=== PATIENT | female | born 1950 | race Caucasian/White ===

== ENCOUNTER 2017-07-18 12:29 | Inpatient (IN) | payer OTHER, MEDICARE ==
[2017-07-18 12:34] VITALS: BMI 28.3
[2017-07-18] MEDS ORDERED: methylPREDNISolone NA SUCC 125 MG/2 ML VIAL IVPB ONE (13:50)
[2017-07-18] MEDS ORDERED: methylPREDNISolone NA SUCC 125 MG/2 ML VIAL ONE (14:08)
[2017-07-18] MEDS ORDERED: ALBUTEROL SO4 2.5/IPRATROPIUM 0.5 INH SOL 3 ML VIAL.NEB. NEB ONE ×3 (14:08→21:38)
[2017-07-18] MEDS: ALBUTEROL SO4 2.5/IPRATROPIUM 0.5 INH SOL 3 ML VIAL.NEB. NEB SCH ×5 (14:08→21:58)
[2017-07-18 14:16] LABS: BASO % 0.6 % (0-2.0); EOS % 2.6 % (0-4.5); HEMATOCRIT 41.4 % (32.4-45.2); HEMOGLOBIN 13.5 GM/dL (10.7-15.3); LYMPH % 17.1 % (8-40); MCH 27.1 pg (25.7-33.7); MCHC 32.5 g/dl (32.0-36.0); MEAN CELL VOLUME 83.3 fl (80-96); MEAN PLT VOLUME 8.2 fl (7.5-11.1); MONO % 9.2 % (3.8-10.2); NEUT % 70.5 % (42.8-82.8); PLATELET COUNT 253 K/MM3 (134-434); RBC 4.97 M/mm3 (3.60-5.2); RDW 13.8 % (11.6-15.6); WHITE BLOOD COUNT 7.3 K/mm3 (4.0-10.0)
[2017-07-18] MEDS ORDERED: ACETAMINOPHEN 1000 MG/100 ML VIAL (NON FORMULARY) IVPB ONE (14:27)
[2017-07-18] MEDS ORDERED: SODIUM CHLORIDE 1,000 ML IV STA (14:27)
--- NOTE | 2017-07-18 14:27 | PDOC ---
History of Present Illness - General Chief Complaint: Respiratory Stated Complaint: WHEEZING Time Seen by Provider: 07/18/17 13:36 - History of Present Illness Initial Comments: 07/18/17 14:23 "The patient is a 67-year-old woman with a significant past medical history of bronchitis, chronic low-back pain, arthritis, who presents with SOB for 4 days. The patient states that she saw her primary 2 days ago who diagnosed her with bronchitis and told her she was flu-positive. She was started on tamiflu and cefuroxime. She states that over the past 2 days she has gotten worse. States that she has been coughing, wheezing and unable to sleep. She also reports diarrhea (since this morning), nausea without vomit, and headache (one week). She denies recent fevers, chills, or dizziness. She denies recent vomit, or constipation. She denies recent dysuria, frequency, urgency or hematuria. She denies recent chest pain. Allergies: Oxycodone (reaction: nausea, vomiting) Previous surgeries: Temporary kidney stent (s/p 7 years ago); C-spine surgery with titanium; gallbladder removal Social: non-smoker, non-drinker PCP: Thad Urologist: Halima Duran) " Past History - Past Medical History Allergies/Adverse Reactions: Allergies Allergy/AdvReac Type Severity Reaction Status Date / Time oxycodone AdvReac Severe Nausea Verified 07/18/17 12:34 Home Medications: Ambulatory Orders Escitalopram Oxalate [Lexapro -] 10 mg PO DAILY 03/03/15 Cefuroxime Axetil [Cefuroxime] 500 mg PO BID 07/18/17 Oseltamivir Phosphate [Tamiflu -] 75 mg PO BID 07/18/17 Pantoprazole Sodium [Protonix] 40 mg PO DAILY 07/18/17 Anemia: No Asthma: No Cancer: No Cardiac Disorders: No CVA: No COPD: No CHF: No Dementia: No Diabetes: No GI Disorders: Yes Disorders: No HTN: No Hypercholesterolemia: No Liver Disease: No Psychiatric Problems: No Seizures: No Thyroid Disease: No - Surgical History Abdominal Surgery: No Appendectomy: No Cardiac Surgery: No Cholecystectomy: Yes Lung Surgery: No Neurologic Surgery: No Orthopedic Surgery: Yes (CERVICAL SPINAL SURGERY 04/2010) - Suicide/Smoking/Psychosocial Hx Smoking History: Never smoked Have you smoked in the past 12 months: No Hx Alcohol Use: Yes (SOCIAL) Drug/Substance Use Hx: No Substance Use Type: None Review of Systems - Review of Systems Comments:: 07/18/17 14:24 "GENERAL/CONSTITUTIONAL: No fever or chills. No weakness. HEAD, EYES, EARS, NOSE AND THROAT: No change in vision. No ear pain or discharge. No sore throat. CARDIOVASCULAR: No chest pain. + shortness of breath. RESPIRATORY: +cough, +wheezing, no hemoptysis. GASTROINTESTINAL: +nausea, no vomiting, +diarrhea, no constipation. GENITOURINARY: No dysuria, frequency, or change in urination. MUSCULOSKELETAL: No joint or muscle swelling or pain. No neck or back pain. SKIN: No rash NEUROLOGIC: +headache, no vertigo, loss of consciousness, or change in strength/ sensation. ENDOCRINE: No increased thirst. No abnormal weight change. HEMATOLOGIC/LYMPHATIC: No anemia, easy bleeding, or history of blood clots. ALLERGIC/IMMUNOLOGIC: No hives or skin allergy." *Physical Exam - Vital Signs Last Vital Signs Temp Pulse Resp BP Pulse Ox 98.6 F 128 H 20 154/93 98 07/18/17 12:32 07/18/17 12:32 07/18/17 12:32 07/18/17 12:32 07/18/17 12:32 - Physical Exam Comments: 07/18/17 14:25 "GENERAL: Awake, alert, and fully oriented, in no acute distress HEAD: No signs of trauma EYES: PERRLA, EOMI, sclera anicteric, conjunctiva clear ENT: Auricles normal inspection, hearing grossly normal, nares patent, oropharynx clear without exudates. Moist mucosa NECK: Nontender, no stepoffs, Normal ROM, supple, no lymphadenopathy, JVD, or masses LUNGS: Bilateral wheezing, no rales or rhonchi HEART: Regular rate and rhythm, normal S1 and S2, no murmurs, rubs or gallops ABDOMEN: Soft, nontender, normoactive bowel sounds. No guarding, no rebound. No masses EXTREMITIES: Normal range of motion, no edema. No clubbing or cyanosis. No cords, erythema, or tenderness NEUROLOGICAL: Cranial nerves II through XII intact. 5/5 strength and sensation in all extremities, Normal speech, normal gait SKIN: Warm, Dry, normal turgor, no rashes or lesions noted. " Heart Score/ECG Review - ECG Impressions Comment:: 07/18/17 14:25 NSR, no JUAN JOSE/STDs, no TWIs, axis wnl, intervals wnl ED Treatment Course - LABORATORY CBC & Chemistry Diagram: 07/18/17 13:55 07/18/17 13:55 - ADDITIONAL ORDERS Additional order review: 07/18/17 13:55 RBC 4.97 MCV 83.3 MCHC 32.5 RDW 13.8 MPV 8.2 Neutrophils % 70.5 Lymphocytes % 17.1 D Monocytes % 9.2 Eosinophils % 2.6 Basophils % 0.6 - RADIOLOGY Radiology Studies Ordered: Category Date Time Status CHEST PA & LAT [RAD] Stat Radiology 07/18/17 13:49 Ordered - Medications Given in the ED: ED Medications Discontinued Medications Generic Name Dose Route Start Last Admin Trade Name Freq PRN Reason Stop Dose Admin Methylprednisolone Sodium Succinate 125 mg 07/18/17 13:50 07/18/17 14:08 Solu-Medrol - IVPB 07/18/17 13:51 125 mg ONCE ONE Administration Medical Decision Making - Medical Decision Making 07/18/17 14:25 67 F with cough and SOB x 2 days. Wheezing on exam. Concerning for acute asthma exacerbation. Pt denies h/o asthma but states that she has been put on nebulizers in the past. - Labs - CXR - IVF, nebs, solumedrol - Pt is already on tamiflu for + outpt flu swab 07/18/17 17:57 CBC,CMP WBC 7.3 K/mm3 (4.0-10.0) 07/18/17 13:55 RBC 4.97 M/mm3 (3.60-5.2) 07/18/17 13:55 Hgb 13.5 GM/dL (10.7-15.3) 07/18/17 13:55 Hct 41.4 % (32.4-45.2) 07/18/17 13:55 MCV 83.3 fl (80-96) 07/18/17 13:55 MCH 27.1 pg (25.7-33.7) 07/18/17 13:55 MCHC 32.5 g/dl (32.0-36.0) 07/18/17 13:55 RDW 13.8 % (11.6-15.6) 07/18/17 13:55 Plt Count 253 K/MM3 (134-434) 07/18/17 13:55 MPV 8.2 fl (7.5-11.1) 07/18/17 13:55 Neutrophils % 70.5 % (42.8-82.8) 07/18/17 13:55 Lymphocytes % 17.1 % (8-40) D 07/18/17 13:55 Monocytes % 9.2 % (3.8-10.2) 07/18/17 13:55 Eosinophils % 2.6 % (0-4.5) 07/18/17 13:55 Basophils % 0.6 % (0-2.0) 07/18/17 13:55 Sodium 144 mmol/L (136-145) 07/18/17 13:55 Potassium 4.1 mmol/L (3.5-5.1) 07/18/17 13:55 Chloride 106 mmol/L (98-107) 07/18/17 13:55 Carbon Dioxide 30 mmol/L (21-32) 07/18/17 13:55 Anion Gap 8 (8-16) 07/18/17 13:55 BUN 10 mg/dL (7-18) 07/18/17 13:55 Creatinine 0.5 mg/dL (0.55-1.02) L 07/18/17 13:55 Creat Clearance w eGFR > 60 (>60) 07/18/17 13:55 Random Glucose 96 mg/dL (74-106) 07/18/17 13:55 Calcium 8.6 mg/dL (8.5-10.1) 07/18/17 13:55 Total Bilirubin 0.4 mg/dL (0.2-1.0) 07/18/17 13:55 AST 21 U/L (15-37) 07/18/17 13:55 ALT 27 U/L (12-78) 07/18/17 13:55 Alkaline Phosphatase 102 U/L (45-117) 07/18/17 13:55 Creatine Kinase 59 IU/L (26-192) 07/18/17 13:55 Troponin I < 0.02 ng/ml (0.00-0.05) 07/18/17 13:55 B-Natriuretic Peptide 273.93 pg/ml (5-125) H 07/18/17 13:55 Total Protein 7.8 g/dl (6.4-8.2) 07/18/17 13:55 Albumin 3.8 g/dl (3.4-5.0) 07/18/17 13:55 CXR clear Pt reassessed s/p nebs and steroids - states her breathing is better but she still continues to feel SOB. Additional nebs ordered, will admit at this time for continued treatment. Admitted to hospitalist *DC/Admit/Observation/Transfer Diagnosis at time of Disposition: SOB (shortness of breath) - Discharge Dispostion Admit: Yes - Referrals Referrals: Patria Oneil MD [Primary Care Provider] - - Patient Instructions - Post Discharge Activity - Attestations Physician Attestion: 07/18/17 18:02 I, Dr. Hans Martin MD, attest that this document has been prepared under my direction and personally reviewed by me in its entirety. I further attest, that it accurately reflects all work, treatment, procedures and medical decision -making performed by me.
[2017-07-18 14:38] LABS: ALBUMIN 3.8 g/dl (3.4-5.0); ANION GAP 8 (8-16); BLOOD UREA NITROGEN 10 mg/dL (7-18); CALCIUM 8.6 mg/dL (8.5-10.1); CHLORIDE 106 mmol/L (98-107); CO2 30 mmol/L (21-32); GLUCOSE,RANDOM 96 mg/dL (74-106); POTASSIUM 4.1 mmol/L (3.5-5.1); SODIUM 144 mmol/L (136-145)
[2017-07-18 14:42] LABS: CREATININE 0.5 mg/dL (0.55-1.02); SGOT/AST 21 U/L (15-37); SGPT/ALT 27 U/L (12-78)
[2017-07-18 14:46] LABS: ALK PHOS 102 U/L (45-117); BILIRUBIN,TOTAL 0.4 mg/dL (0.2-1.0); N-TERMINAL BNP 273.93 pg/ml (5-125); TOT PROT 7.8 g/dl (6.4-8.2)
[2017-07-18] MEDS ORDERED: ACETAMINOPHEN INJECTION 100 ML IVPB ONE (15:38)
[2017-07-18] MEDS ORDERED: ALBUTEROL SO4 0.083% IH SOL 2.5 MG/3 ML VIAL.NEB. NEB ONE (17:59)
--- NOTE | 2017-07-18 18:53 | HP ---
CHIEF COMPLAINT: body aches, shortness of breath, audible wheezing PCP: Dr. Oneil HISTORY OF PRESENT ILLNESS: Patient is a 67 year old female with a significant past medical history of bronchitis, chronic low-back pain and arthritis. Patient presents to the ED today with shortness of breath x 4 dahs. Patient saw her PCP on Wednesday (2 days ago) and was diagnosed with bronchitis and was told she was positive for the flu. She was started on Tamilfu and and Cefuroxime. However, over the course of the last 48 hours, patients states her breathing worsened. She further reports worsening cough, chills, audible wheezing and poor sleep due to these symptoms. She also reports diarrhea, nausea without vomiting, and headaches. However, states that these symptoms have improved now and able to tolerate her dinner. She denies recent chills, or dizziness but feels "flushed" at home. She denies chest pain. ER course was notable for: (1) Solumedrol 125mg given in ED (2) Ofirmev 1000mg x 1 (3) Duonebs x 2 (4) Chest xray no acute pathology, lower cervical spinal fusion Recent Travel: denies PAST MEDICAL HISTORY: PAST SURGICAL HISTORY: Temporary kidney stent (s/p 7 years ago); C-spine surgery with titanium; gallbladder removal Social History: Smoking: denies Alcohol: denies Drugs: denies Family History: Allergies oxycodone Adverse Reaction (Severe, Verified 07/18/17 12:34) Nausea HOME MEDICATIONS: Home Medications Medication Instructions Recorded Escitalopram Oxalate [Lexapro -] 10 mg PO DAILY 03/03/15 Cefuroxime Axetil [Cefuroxime] 500 mg PO BID 07/18/17 Oseltamivir Phosphate [Tamiflu -] 75 mg PO BID 07/18/17 Pantoprazole Sodium [Protonix] 40 mg PO DAILY 07/18/17 REVIEW OF SYSTEMS CONSTITUTIONAL: Absent: diaphoresis, weight change HEENT: Absent: rhinorrhea, throat swelling, difficulty swallowing, mouth swelling, ear pain, eye pain, visual changes CARDIOVASCULAR: Absent: chest pain, syncope, palpitations, irregular heart rate, lightheadedness , peripheral edema RESPIRATORY: Absent: hemoptysis GENITOURINARY: Absent: dysuria, frequency, urgency, hesitancy, hematuria, flank pain, genital pain MUSCULOSKELETAL: Absent: myalgia, arthralgia, joint swelling, back pain, neck pain SKIN: Absent: rash, itching, pallor HEMATOLOGIC/IMMUNOLOGIC: Absent: easy bleeding, easy bruising, lymphadenopathy, frequent infections ENDOCRINE: Absent: unexplained weight gain, unexplained weight loss, heat intolerance, cold intolerance NEUROLOGIC: Absent: headache, focal weakness or paresthesias, dizziness, unsteady gait, seizure, mental status changes, bladder or bowel incontinence PSYCHIATRIC: PHYSICAL EXAMINATION Vital Signs - 24 hr 07/18/17 07/18/17 12:32 18:10 Temperature 98.6 F 99.6 F Pulse Rate 128 H Pulse Rate [ 124 H Left Apical] Respiratory 20 18 Rate Blood Pressure 154/93 Blood Pressure 144/68 [Left Arm] O2 Sat by Pulse 98 98 Oximetry (%) GENERAL: Awake, alert, and fully oriented, in mild respiratory distress. HEAD: Normal with no signs of trauma. EYES: Pupils equal, round and reactive to light, extraocular movements intact, sclera anicteric, conjunctiva clear. No lid lag. EARS, NOSE, THROAT: Ears normal, nares patent, oropharynx clear without exudates. Moist mucous membranes. NECK: Normal range of motion, supple without lymphadenopathy, JVD, or masses. LUNGS: +wheezing, scattered, diminished breath sounds bilaterally HEART: Tachycardia ABDOMEN: Soft, nontender, not distended, normoactive bowel sounds MUSCULOSKELETAL: No CVA tenderness. UPPER EXTREMITIES: No clubbing. No peripheral edema. LOWER EXTREMITIES: No peripheral edema. NEUROLOGICAL: Cranial nerves II-XII intact. Normal speech. Normal gait. PSYCHIATRIC: Cooperative. Good eye contact. Appropriate mood and affect. SKIN: Warm, dry, normal turgor, no rashes or lesions noted, normal capillary refill. Laboratory Results - last 24 hr 07/18/17 07/18/17 13:55 13:55 WBC 7.3 RBC 4.97 Hgb 13.5 Hct 41.4 MCV 83.3 MCH 27.1 MCHC 32.5 RDW 13.8 Plt Count 253 MPV 8.2 Neutrophils % 70.5 Lymphocytes % 17.1 D Monocytes % 9.2 Eosinophils % 2.6 Basophils % 0.6 Sodium 144 Potassium 4.1 Chloride 106 Carbon Dioxide 30 Anion Gap 8 BUN 10 Creatinine 0.5 L Creat Clearance w eGFR > 60 Random Glucose 96 Calcium 8.6 Total Bilirubin 0.4 AST 21 ALT 27 Alkaline Phosphatase 102 Creatine Kinase 59 Troponin I < 0.02 B-Natriuretic Peptide 273.93 H Total Protein 7.8 Albumin 3.8 ASSESSMENT/PLAN: Patient is a 67 year old female with a significant past medical history of bronchitis, chronic low-back pain and arthritis. Patient presents to the ED today with shortness of breath x 4 days. Patient saw her PCP on Wednesday (2 days ago) and was diagnosed with bronchitis and was told she was positive for the flu. She was started on Tamilfu and and Cefuroxime. However, over the course of the last 48 hours, patients states her breathing worsened. She further reports worsening cough, chills, audible wheezing and poor sleep due to these symptoms. She also reports diarrhea, nausea without vomiting, and headaches. However, states that these symptoms have improved now and able to tolerate her dinner. She denies recent chills, or dizziness but feels "flushed" at home. She denies chest pain. Pulmonary: + Flu, Bronchitis + wheezing Given Solumedrol in ED, will continue solumedrol 40mg during hospitalization Duonebs Supplemental oxygen Tamiflu to continue Cefuroxime as ordered by PCP Robitussin PRN Monitor respiratory status, wean off oxygen in a.m. (needs respiratory pre and post) Consider pulmonary consult To be seen by her PCP in a.m. GI: Nausea/Vomiting/Diarrhea, now resolved Gentle hydration x 1 bag Reassess in a.m. Zofran prn Muscular/Skeletal Lidoder patch for chronic low back pain/arthritis Tylenol PRN FEN Fluids: tolerating PO Electrolytes: monitor Nutrition: regular Prophy: DVT: LOS < 48 hrs GI: Protonix Disposition. Full Code. Medical coverage for Dr. Oneil. Dr. Oneil to resume care in a.m. full code. Visit type - Emergency Visit Emergency Visit: Yes ED Registration Date: 07/18/17 Care time: The patient presented to the Emergency Department on the above date and was hospitalized for further evaluation of their emergent condition. - New Patient This patient is new to me today: Yes Date on this admission: 07/19/17 - Critical Care Critical Care patient: No
[2017-07-18] MEDS ORDERED: ALBUTEROL SO4 2.5/IPRATROPIUM 0.5 INH SOL 3 ML VIAL.NEB. NEB PRN (19:25)
[2017-07-18] MEDS ORDERED: ONDANSETRON 4 MG/2 ML VIAL IVPUSH PRN (19:30)
[2017-07-18] MEDS: SODIUM CHLORIDE 1,000 ML IV SCH (21:57)
[2017-07-18] MEDS ORDERED: LIDOCAINE 5% TOPICAL PATCH ONE (22:05)
[2017-07-18] MEDS ORDERED: OSELTAMIVIR PHOSPHATE 75 MG CAPSULE ONE (22:05)
[2017-07-18] MEDS ORDERED: ACETAMINOPHEN 325 MG TABLET (FP) ONE (22:05)
[2017-07-18] MEDS: ACETAMINOPHEN 325 MG TABLET (FP) PO PRN (22:11)
[2017-07-18] MEDS: LIDOCAINE 5% TOPICAL PATCH TP SCH (22:12)
[2017-07-18] MEDS: OSELTAMIVIR PHOSPHATE 75 MG CAPSULE PO SCH (22:12)
[2017-07-18] MEDS: CEFUROXIME AXETIL 500 MG TABLET PO SCH (22:43)
[2017-07-19] MEDS ORDERED: ONDANSETRON 4 MG/2 ML VIAL ONE (02:22)
[2017-07-19] MEDS ORDERED: ACETAMINOPHEN 325 MG TABLET (FP) ONE (02:23)
[2017-07-19] MEDS ORDERED: methylPREDNISolone NA SUCC 40 MG/1 ML VIAL ONE (02:23)
[2017-07-19] MEDS: ACETAMINOPHEN 325 MG TABLET (FP) PO PRN ×3 (02:41→20:34)
[2017-07-19] MEDS: methylPREDNISolone NA SUCC 40 MG/1 ML VIAL IVPUSH SCH ×3 (02:43→17:44)
[2017-07-19 08:09] LABS: HEMATOCRIT 37.4 % (32.4-45.2); HEMOGLOBIN 12.2 GM/dL (10.7-15.3); MCH 27.3 pg (25.7-33.7); MCHC 32.8 g/dl (32.0-36.0); MEAN CELL VOLUME 83.3 fl (80-96); MEAN PLT VOLUME 8.7 fl (7.5-11.1); PLATELET COUNT 238 K/MM3 (134-434); RBC 4.49 M/mm3 (3.60-5.2); RDW 13.8 % (11.6-15.6); WHITE BLOOD COUNT 12.1 K/mm3 (4.0-10.0)
[2017-07-19] MEDS: ALBUTEROL SO4 2.5/IPRATROPIUM 0.5 INH SOL 3 ML VIAL.NEB. NEB SCH ×4 (08:10→19:46)
[2017-07-19] MEDS ORDERED: ALBUTEROL SO4 2.5/IPRATROPIUM 0.5 INH SOL 3 ML VIAL.NEB. NEB ONE (08:41)
[2017-07-19 08:52] LABS: ALBUMIN 3.7 g/dl (3.4-5.0); ANION GAP 9 (8-16); BILIRUBIN,TOTAL 0.5 mg/dL (0.2-1.0); BLOOD UREA NITROGEN 8 mg/dL (7-18); CALCIUM 8.9 mg/dL (8.5-10.1); CHLORIDE 106 mmol/L (98-107); CO2 26 mmol/L (21-32); CREATININE 0.5 mg/dL (0.55-1.02); GLUCOSE,RANDOM 128 mg/dL (74-106); POTASSIUM 4.4 mmol/L (3.5-5.1); SGOT/AST 21 U/L (15-37); SGPT/ALT 25 U/L (12-78); SODIUM 141 mmol/L (136-145); TOT PROT 7.5 g/dl (6.4-8.2)
[2017-07-19 08:53] LABS: ALK PHOS 90 U/L (45-117)
[2017-07-19] MEDS: OSELTAMIVIR PHOSPHATE 75 MG CAPSULE PO SCH ×2 (10:57→22:41)
[2017-07-19] MEDS: LIDOCAINE PATCH REMOVAL MC SCH (10:57)
[2017-07-19] MEDS: PANTOPRAZOLE 40 MG TABLET (FP) PO SCH (10:57)
[2017-07-19] MEDS: CEFUROXIME AXETIL 500 MG TABLET PO SCH ×2 (10:57→22:40)
[2017-07-19] MEDS: ESCITALOPRAM OXALATE 10 MG TABLET (FP) PO SCH (10:57)
--- NOTE | 2017-07-19 11:24 | PN ---
Progress Note, Physician Chief Complaint: seen and examined coughing all night - Current Medication List Current Medications: Active Medications Acetaminophen (Tylenol -) 650 mg PO Q6H PRN PRN Reason: fever Last Admin: 07/19/17 02:41 Dose: 650 mg Albuterol/Ipratropium (Duoneb -) 1 amp NEB RQID [facility] Last Admin: 07/19/17 08:10 Dose: 1 amp Cefuroxime Axetil (Ceftin -) 500 mg PO BID [facility] Last Admin: 07/18/17 22:43 Dose: 500 mg Escitalopram Oxalate (Lexapro -) 10 mg PO DAILY [facility] Guaifenesin (Robitussin -) 10 ml PO Q4H PRN PRN Reason: COUGH Sodium Chloride (Normal Saline -) 1,000 mls @ 50 mls/hr IV ASDIR [facility] Stop: 07/19/17 19:30 Last Admin: 07/18/17 21:57 Dose: 50 mls/hr Lidocaine (Lidoderm Patch -) 1 patch TP DAILY@2200 [facility] Last Admin: 07/18/17 22:12 Dose: 1 patch Methylprednisolone Sodium Succinate (Solu-Medrol -) 40 mg IVPUSH Q8H-IV [facility] Last Admin: 07/19/17 02:43 Dose: 40 mg Miscellaneous (Lidoderm Patch Removal) 1 each MC DAILY@1000 [facility] Ondansetron HCl (Zofran Injection) 4 mg IVPUSH Q6H PRN PRN Reason: NAUSEA Last Admin: 07/19/17 02:41 Dose: 4 mg Oseltamivir Phosphate (Tamiflu -) 75 mg PO BID [facility] Stop: 07/23/17 21:59 Last Admin: 07/18/17 22:12 Dose: 75 mg Pantoprazole Sodium (Protonix -) 40 mg PO DAILY [facility] - Objective Vital Signs: Vital Signs Temperature 98.2 F 07/19/17 08:58 Pulse Rate 111 H 07/19/17 08:58 Respiratory Rate 106 H 07/19/17 10:15 Blood Pressure 130/60 07/19/17 10:15 O2 Sat by Pulse Oximetry (%) 96 07/19/17 10:15 Cardiovascular: Yes: Regular Rate and Rhythm, S1, S2 Respiratory: Yes: Wheezes Gastrointestinal: Yes: Normal Bowel Sounds, Soft Edema: No Neurological: Yes: Alert, Oriented Labs: CBC, BMP 07/19/17 07:42 07/19/17 07:42 Problem List - Problems (1) SOB (shortness of breath) Assessment/Plan: influenza swab ordered tamiflu cefuroxime solumedrol bronchodilators pulm evaluation leukocytosis secondary to the steroids secoandry to bronchitis/flu early ambulation Code(s): R06.02 - SHORTNESS OF BREATH (2) Low back pain Assessment/Plan: lidocaine patch Code(s): M54.5 - LOW BACK PAIN
--- NOTE | 2017-07-19 13:04 | EKG ---
Test Reason : Blood Pressure : / mmHG Vent. Rate : 092 BPM Atrial Rate : 092 BPM P-R Int : 126 ms QRS Dur : 078 ms QT Int : 346 ms P-R-T Axes : 041 005 019 degrees QTc Int : 427 ms NORMAL SINUS RHYTHM NORMAL ECG WHEN COMPARED WITH ECG OF 31-MAR-2007 07:43, NO SIGNIFICANT CHANGE WAS FOUND Confirmed by MIREYA MATHEWS MD ([id number]) on 07/19/2017 1:04:34 PM Referred By: Confirmed By:MIREYA MATHEWS MD
[2017-07-19] MEDS: SODIUM CHLORIDE 1,000 ML IV SCH (14:25)
[2017-07-19] MEDS: guaiFENesin 200 MG/10 ML 10 ML UNIT-DOSE CUPS PO PRN ×2 (14:26→20:34)
[2017-07-19] MEDS ORDERED: SODIUM CHLORIDE 1,000 ML IV SCH (14:50)
[2017-07-19] MEDS ORDERED: PT OWN MED DRAWER 7, Y5N ONE (15:47)
[2017-07-19] MEDS: LIDOCAINE 5% TOPICAL PATCH TP SCH ×2 (22:41→22:47)
[2017-07-20] MEDS: methylPREDNISolone NA SUCC 40 MG/1 ML VIAL IVPUSH SCH ×3 (01:06→17:34)
[2017-07-20] MEDS: guaiFENesin 200 MG/10 ML 10 ML UNIT-DOSE CUPS PO PRN ×4 (01:06→20:29)
[2017-07-20] MEDS: ALBUTEROL SO4 2.5/IPRATROPIUM 0.5 INH SOL 3 ML VIAL.NEB. NEB SCH ×4 (07:51→20:55)
[2017-07-20] MEDS ORDERED: PT OWN MED DRAWER 7, Y5N ONE ×3 (10:00→20:34)
[2017-07-20] MEDS: OSELTAMIVIR PHOSPHATE 75 MG CAPSULE PO SCH ×2 (10:18→21:47)
[2017-07-20] MEDS: ESCITALOPRAM OXALATE 10 MG TABLET (FP) PO SCH (10:18)
[2017-07-20] MEDS: PANTOPRAZOLE 40 MG TABLET (FP) PO SCH (10:18)
[2017-07-20] MEDS: CEFUROXIME AXETIL 500 MG TABLET PO SCH ×2 (10:19→21:47)
[2017-07-20] MEDS: LIDOCAINE PATCH REMOVAL MC SCH (10:20)
--- NOTE | 2017-07-20 11:04 | PN ---
Progress Note, Physician Chief Complaint: Influenza, Bronchitis History of Present Illness: NAD, OOB self ambulatory, No SOB, No wheezing Coughing improved dramatically repeat influenza swab negative, today is day 5 on Tamiflu, no viral shedding after day 3 of treatment. will need albuterol neb for home possible discharge in AM - Current Medication List Current Medications: Active Medications Acetaminophen (Tylenol -) 650 mg PO Q6H PRN PRN Reason: fever Last Admin: 07/19/17 20:34 Dose: 650 mg Albuterol/Ipratropium (Duoneb -) 1 amp NEB RQID [facility] Last Admin: 07/20/17 07:51 Dose: 1 amp Cefuroxime Axetil (Ceftin -) 500 mg PO BID [facility] Last Admin: 07/20/17 10:19 Dose: 500 mg Escitalopram Oxalate (Lexapro -) 10 mg PO DAILY [facility] Last Admin: 07/20/17 10:18 Dose: 10 mg Guaifenesin (Robitussin -) 10 ml PO Q4H PRN PRN Reason: COUGH Last Admin: 07/20/17 06:21 Dose: 10 ml Lidocaine (Lidoderm Patch -) 1 patch TP DAILY@2200 [facility] Last Admin: 07/19/17 22:47 Dose: Not Given Methylprednisolone Sodium Succinate (Solu-Medrol -) 40 mg IVPUSH Q8H-IV [facility] Last Admin: 07/20/17 10:19 Dose: 40 mg Miscellaneous (Lidoderm Patch Removal) 1 each MC DAILY@1000 [facility] Last Admin: 07/20/17 10:20 Dose: 1 each Ondansetron HCl (Zofran Injection) 4 mg IVPUSH Q6H PRN PRN Reason: NAUSEA Last Admin: 07/19/17 02:41 Dose: 4 mg Oseltamivir Phosphate (Tamiflu -) 75 mg PO BID [facility] Stop: 07/23/17 21:59 Last Admin: 07/20/17 10:18 Dose: 75 mg Pantoprazole Sodium (Protonix -) 40 mg PO DAILY [facility] Last Admin: 07/20/17 10:18 Dose: 40 mg - Objective Vital Signs: Vital Signs Temperature 98.7 F 07/20/17 06:00 Pulse Rate 76 07/20/17 06:00 Respiratory Rate 20 07/20/17 06:00 Blood Pressure 151/78 07/20/17 06:00 O2 Sat by Pulse Oximetry (%) 98 07/20/17 05:00 Constitutional: Yes: Well Nourished, No Distress, Calm Cardiovascular: Yes: Regular Rate and Rhythm Respiratory: Yes: Regular, Cough Gastrointestinal: Yes: Normal Bowel Sounds, Soft Musculoskeletal: Yes: WNL Extremities: Yes: WNL Edema: No Peripheral Pulses WNL: Yes Neurological: Yes: Alert, Oriented Psychiatric: Yes: Alert, Oriented Labs: CBC, BMP 07/19/17 07:42 07/19/17 07:42 Problem List - Problems (1) Influenza Assessment/Plan: -tamiflu 5 days complete today evening -Cough suppressant -bronchodilators -IVF -IV steroids Code(s): J11.1 - FLU DUE TO UNIDENTIFIED INFLUENZA VIRUS W OTH RESP MANIFEST (2) Bronchitis Assessment/Plan: -IVF -IV steroids tapering -PO abx -cough suppressant -possible d/c in AM Code(s): J40 - BRONCHITIS, NOT SPECIFIED ACUTE OR CHRONIC (3) SOB (shortness of breath) Code(s): R06.02 - SHORTNESS OF BREATH Assessment/Plan see problem list
--- NOTE | 2017-07-20 12:17 | CON.PULM ---
Consult Consult Specialty:: PULM/CCM Referred by:: PMD Reason for Consultation:: SOB - History of Present Illness Chief Complaint: SOB History of Present Illness: 67 F, history of bronchitis, second hand smoke exposure through her , chronic low-back pain, and arthritis. Presented to her PMD last Wednesday with URI symptoms. Chills, malaise, and progressive SOB. She was swabbed and was (+) for Flu and started on Tamiflu. Admitted via the ER due to worsening symptoms. No travel history or sick contacts. No hemoptysis or night sweats. CXR: no acute pulmonary pathology. - History Source Limitations to Obtaining History: No Limitations - Past Medical History Pulmonary: Yes: Bronchitis - Past Surgical History Past Surgical History: Yes: Hysterectomy (sec to fibroids 2010) - Alcohol/Substance Use Hx Alcohol Use: Yes (SOCIAL) - Smoking History Smoking history: Never smoked Have you smoked in the past 12 months: No Home Medications - Allergies Allergies/Adverse Reactions: Allergies Allergy/AdvReac Type Severity Reaction Status Date / Time oxycodone AdvReac Severe Nausea Verified 07/18/17 12:34 - Home Medications Home Medications: Ambulatory Orders Escitalopram Oxalate [Lexapro -] 10 mg PO DAILY 03/03/15 Cefuroxime Axetil [Cefuroxime] 500 mg PO BID 07/18/17 Oseltamivir Phosphate [Tamiflu -] 75 mg PO BID 07/18/17 Pantoprazole Sodium [Protonix] 40 mg PO DAILY 07/18/17 Family Disease History - Family Disease History Family Disease History: Diabetes: Father, Brother, [place]: Daughter (breast cancer BRCA neg) Review of Systems - Review of Systems Constitutional: reports: Chills, Lethargy, Loss of Appetite, Malaise, Weakness. denies: Night Sweats Eyes: reports: No Symptoms HENT: reports: No Symptoms Neck: reports: No Symptoms Cardiovascular: reports: Shortness of Breath. denies: Chest Pain, Edema, Palpitations Respiratory: reports: Cough, SOB, SOB on Exertion, Wheezing. denies: Hemoptysis Gastrointestinal: reports: No Symptoms Genitourinary: reports: No Symptoms Breasts: reports: No Symptoms Reported Musculoskeletal: reports: No Symptoms Integumentary: reports: No Symptoms Neurological: reports: No Symptoms Endocrine: reports: No Symptoms Hematology/Lymphatic: reports: No Symptoms Psychiatric: reports: No Symptoms Physical Exam Vital Sings: Vital Signs Temperature 98.0 F 07/20/17 10:00 Pulse Rate 85 07/20/17 10:00 Respiratory Rate 20 07/20/17 10:00 Blood Pressure 157/87 07/20/17 10:00 O2 Sat by Pulse Oximetry (%) 98 07/20/17 05:00 Constitutional: Yes: No Distress, Calm Eyes: Yes: Conjunctiva Clear, EOM Intact HENT: Yes: Atraumatic, Normocephalic Neck: Yes: Supple, Trachea Midline Cardiovascular: Yes: Regular Rate and Rhythm Respiratory: Yes: CTA Bilaterally, Cough. No: Accessory Muscle Use, Rales, Rhonchi, Stridor, Tachypnea, Wheezes ...Inspection: Yes: WNL ...Clubbing: No Gastrointestinal: Yes: Normal Bowel Sounds, Soft, Abdomen, Obese Renal/: Yes: WNL Musculoskeletal: Yes: WNL Extremities: Yes: WNL Edema: No Peripheral Pulses WNL: Yes Integumentary: Yes: WNL Neurological: Yes: WNL, Alert, Oriented ...Motor Strength: WNL Psychiatric: Yes: WNL, Alert, Oriented Labs: CBC, BMP 07/19/17 07:42 07/19/17 07:42 Imaging - Results Chest X-ray: Report Reviewed, Image Reviewed Problem List - Problems (1) Bronchitis Code(s): J40 - BRONCHITIS, NOT SPECIFIED ACUTE OR CHRONIC (2) Influenza Code(s): J11.1 - FLU DUE TO UNIDENTIFIED INFLUENZA VIRUS W OTH RESP MANIFEST (3) SOB (shortness of breath) Code(s): R06.02 - SHORTNESS OF BREATH (4) Low back pain Code(s): M54.5 - LOW BACK PAIN Assessment/Plan Tamiflu to complete 5 days in total Noted empiric Ceftin: low threshold to D/C O2 as needed Medrol VTE prophylaxis Hopefully anticipate short stay as an inpatient Will follow Thank you Dr Allan
[2017-07-20] MEDS: ACETAMINOPHEN 325 MG TABLET (FP) PO PRN (15:53)
[2017-07-20] MEDS: LIDOCAINE 5% TOPICAL PATCH TP SCH (21:46)
[2017-07-21] MEDS: methylPREDNISolone NA SUCC 40 MG/1 ML VIAL IVPUSH SCH (02:03)
[2017-07-21] MEDS ORDERED: PT OWN MED DRAWER 7, Y5N ONE ×2 (07:28→09:51)
[2017-07-21] MEDS: ALBUTEROL SO4 2.5/IPRATROPIUM 0.5 INH SOL 3 ML VIAL.NEB. NEB SCH ×2 (08:12→11:30)
[2017-07-21] MEDS: OSELTAMIVIR PHOSPHATE 75 MG CAPSULE PO SCH (09:54)
[2017-07-21] MEDS: ESCITALOPRAM OXALATE 10 MG TABLET (FP) PO SCH (09:54)
[2017-07-21] MEDS: ACETAMINOPHEN 325 MG TABLET (FP) PO PRN (09:54)
[2017-07-21] MEDS: PANTOPRAZOLE 40 MG TABLET (FP) PO SCH (09:54)
[2017-07-21] MEDS: LIDOCAINE PATCH REMOVAL MC SCH (09:55)
[2017-07-21] MEDS: CEFUROXIME AXETIL 500 MG TABLET PO SCH (09:55)
[2017-07-21] MEDS: guaiFENesin 200 MG/10 ML 10 ML UNIT-DOSE CUPS PO PRN (09:56)
[2017-07-21] MEDS ORDERED: methylPREDNISolone NA SUCC 40 MG/1 ML VIAL IVPUSH SCH (10:00)
--- NOTE | 2017-07-21 10:33 | DS ---
Physical Examination Vital Signs: Vital Signs Temperature 97.6 F 07/21/17 06:00 Pulse Rate 78 07/21/17 06:00 Respiratory Rate 20 07/21/17 06:00 Blood Pressure 151/75 07/21/17 06:00 O2 Sat by Pulse Oximetry (%) 95 07/20/17 21:00 Constitutional: Yes: Well Nourished, No Distress, Calm Cardiovascular: Yes: Regular Rate and Rhythm Respiratory: Yes: Regular Gastrointestinal: Yes: Normal Bowel Sounds Musculoskeletal: Yes: WNL Extremities: Yes: WNL Edema: No Peripheral Pulses WNL: Yes Neurological: Yes: Alert, Oriented Psychiatric: Yes: Alert, Oriented Labs: CBC, BMP 07/19/17 07:42 07/19/17 07:42 Discharge Summary Reason For Visit: SOB Current Active Problems Bronchitis (Acute) Influenza (Acute) SOB (shortness of breath) (Acute) Hospital Course: Patient is a 67 year old female with a significant past medical history of bronchitis, chronic low-back pain and arthritis. Patient presents to the ED today with shortness of breath x 4 dahs. Patient saw her PCP on Wednesday (2 days ago) and was diagnosed with bronchitis and was told she was positive for the flu. She was started on Tamilfu and and Cefuroxime. However, over the course of the last 48 hours, patients states her breathing worsened. She further reports worsening cough, chills, audible wheezing and poor sleep due to these symptoms. She also reports diarrhea, nausea without vomiting, and headaches. However, states that these symptoms have improved now and able to tolerate her dinner. She denies recent chills, or dizziness but feels "flushed" at home. She denies chest pain. Condition: Stable - Instructions Referrals: Patria Oneil MD [Primary Care Provider] - Disposition: HOME - Home Medications Comprehensive Discharge Medication List: Ambulatory Orders Escitalopram Oxalate [Lexapro -] 10 mg PO DAILY 03/03/15 Pantoprazole Sodium [Protonix] 40 mg PO DAILY 07/18/17 Albuterol 2.5/Ipratropium 0.5 [Duoneb -] 1 amp NEB RQID #120 amp 07/21/17 Cefuroxime Axetil [Cefuroxime] 500 mg PO BID #10 tablet 07/21/17 Guaifenesin [Robitussin -] 10 ml PO Q4H PRN #600 ml 07/21/17 Nebulizer Accessories [Reusable Nebulizer Kit] 1 each MC Q4H PRN #1 kit Prednisone 10 mg PO ASDIR #65 tablet 07/21/17
[2017-07-21 10:38] VITALS: BP 146/66; PULSE 94; TEMP 97.5
[2017-07-21] MEDS ORDERED: BENZOCAINE/MENTH/CETYLPYRD CL 1 EACH LOZENGE MM PRN (10:46)
[2017-07-21] MEDS ORDERED: guaiFENesin/CODEINE 10 ML UNIT-DOSE CUPS PO PRN (10:47)
--- NOTE | 2017-07-21 12:08 | PN ---
Progress Note, Physician Chief Complaint: cough/wheeze History of Present Illness: COUGH/WHEEZE/SOB NOW SUBJECTIVELY IMPROVED - Current Medication List Current Medications: Active Medications Acetaminophen (Tylenol -) 650 mg PO Q6H PRN PRN Reason: fever Last Admin: 07/21/17 09:54 Dose: 650 mg Albuterol/Ipratropium (Duoneb -) 1 amp NEB RQID [facility] Last Admin: 07/21/17 11:30 Dose: 1 amp Benzocaine/Menthol (Cepacol Lozenge -) 1 each MM PRN PRN PRN Reason: SORE THROAT Cefuroxime Axetil (Ceftin -) 500 mg PO BID [facility] Last Admin: 07/21/17 09:55 Dose: 500 mg Escitalopram Oxalate (Lexapro -) 10 mg PO DAILY [facility] Last Admin: 07/21/17 09:54 Dose: 10 mg Guaifenesin/Codeine Phosphate (Robitussin Ac -) 10 ml PO Q8H PRN PRN Reason: COUGH Lidocaine (Lidoderm Patch -) 1 patch TP DAILY@2200 [facility] Last Admin: 07/20/17 21:46 Dose: 1 patch Methylprednisolone Sodium Succinate (Solu-Medrol -) 40 mg IVPUSH BID [facility] Last Admin: 07/21/17 09:56 Dose: 40 mg Miscellaneous (Lidoderm Patch Removal) 1 each MC DAILY@1000 [facility] Last Admin: 07/21/17 09:55 Dose: 1 each Ondansetron HCl (Zofran Injection) 4 mg IVPUSH Q6H PRN PRN Reason: NAUSEA Last Admin: 07/19/17 02:41 Dose: 4 mg Pantoprazole Sodium (Protonix -) 40 mg PO DAILY [facility] Last Admin: 07/21/17 09:54 Dose: 40 mg - Objective Vital Signs: Vital Signs Temperature 97.5 F L 07/21/17 10:00 Pulse Rate 94 H 07/21/17 10:00 Respiratory Rate 20 07/21/17 10:00 Blood Pressure 146/66 07/21/17 10:00 O2 Sat by Pulse Oximetry (%) 92 L 07/21/17 09:00 Constitutional: Yes: Calm Eyes: Yes: EOM Intact HENT: Yes: Normocephalic Neck: Yes: Trachea Midline Cardiovascular: Yes: Regular Rate and Rhythm, S1, S2 Respiratory: Yes: Rhonchi Gastrointestinal: Yes: Normal Bowel Sounds Edema: No Labs: CBC, BMP 07/19/17 07:42 07/19/17 07:42 - ....Imaging Chest X-ray: Report Reviewed, Image Reviewed Problem List - Problems (1) Rib pain on right side Code(s): R07.81 - PLEURODYNIA (2) Bronchitis Code(s): J40 - BRONCHITIS, NOT SPECIFIED ACUTE OR CHRONIC (3) Influenza Code(s): J11.1 - FLU DUE TO UNIDENTIFIED INFLUENZA VIRUS W OTH RESP MANIFEST (4) Intraductal papilloma of right breast Code(s): D24.1 - BENIGN NEOPLASM OF RIGHT BREAST Assessment/Plan (1) Bronchitis Code(s): J40 - BRONCHITIS, NOT SPECIFIED ACUTE OR CHRONIC (2) Influenza Code(s): J11.1 - FLU DUE TO UNIDENTIFIED INFLUENZA VIRUS W OTH RESP MANIFEST (3) SOB (shortness of breath) Code(s): R06.02 - SHORTNESS OF BREATH (4) Low back pain Code(s): M54.5 - LOW BACK PAIN Assessment/Plan Tamiflu to complete 5 days in total O2 as needed Medrol to be changed to prednisone VTE prophylaxis Sammy RODGERS MD
== END 2017-07-21 14:22 | disposition home or self-care (01) | DRG 153 ==
LOC: JER 12:29 → JERBED 18:29 → J8W 07-19 12:30 → OBSVTOIN 07-20 17:04
PROVIDERS: ADMIT Internal Medicine; ATTEND Family Medicine
DX: J11.1 Influenza due to unidentified influenza virus with other respiratory manifestations (principal); M54.5 Low back pain; R11.2 Nausea with vomiting, unspecified; R19.7 Diarrhea, unspecified; J40 Bronchitis, not specified as acute or chronic; D24.1 Benign neoplasm of right breast
CPT/HCPCS: 36415; 71045-TC; 71046-TC; 80053; 82550; 83880; 84484; 85025; 85027; 87804; 93005; 93010; 94640; 99285-25; G0378

== ENCOUNTER 2018-07-21 11:35 | Emergency (ER) | payer OTHER ==
[2018-07-21 11:55] VITALS: BP 160/81; PULSE 100; TEMP 97.7; BMI 28.1
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
== END 2018-07-21 14:40 | disposition home or self-care (01) ==
LOC: JERFT 11:35
DX: M25.562 Pain in left knee (principal); S80.812A Abrasion, left lower leg, initial encounter; V87.8XXA Person injured in other specified noncollision transport accidents involving motor vehicle (traffic), initial encounter; Y93.89 Activity, other specified; Y92.410 Unspecified street and highway as the place of occurrence of the external cause; J45.909 Unspecified asthma, uncomplicated
CPT/HCPCS: 73560-TC-LT-FY; 99281-25

== ENCOUNTER 2019-05-14 13:14 | Emergency (ER) | payer OTHER ==
[2019-05-14 13:38] VITALS: TEMP 98.1; BMI 30.7
[2019-05-14] MEDS ORDERED: ACETAMINOPHEN 500 MG TABLET (FP) PO ONE (14:15)
--- NOTE | 2019-05-14 14:21 | PDOC ---
History of Present Illness - General Chief Complaint: Injury Stated Complaint: FALL Time Seen by Provider: 05/14/19 13:39 - History of Present Illness Initial Comments: Ms. Wright is a 69 y/o female with PMH significant for HLD and anxiety, s/p neck surgery, presenting today s/p mechanical fall. Reports that she slipped in a hallway and fell onto her face. Reports nose bleed and pain over the bridge of the nose and over the right cheek. Reports that she lost a tooth and her dental crown. Denies headache or dizziness prior to fall. Denies LOC. Denies chest pain or shortness of breath. Denies abdominal pain. Denies urinary symptoms. Denies leg swelling. Past History - Past Medical History Allergies/Adverse Reactions: Allergies Allergy/AdvReac Type Severity Reaction Status Date / Time oxycodone AdvReac Mild Nausea Verified 07/21/17 10:49 Home Medications: Ambulatory Orders Escitalopram Oxalate [Lexapro -] 10 mg PO DAILY 03/03/15 Rosuvastatin [Crestor -] 10 mg PO DAILY 07/21/18 Famotidine [Pepcid] 20 mg PO PRN 05/14/19 Multivit-Min/FA/Lycopen/Lutein [Centrum Silver Tablet] 1 tab PO DAILY 05/14/19 Anemia: No Asthma: Yes CVA: No COPD: No GI Disorders: Yes (GERD) Hypercholesterolemia: Yes Psychiatric Problems: Yes (Depression) - Surgical History Cholecystectomy: Yes Orthopedic Surgery: Yes (CERVICAL SPINAL SURGERY 04/2010) - Psycho Social/Smoking Cessation Hx Smoking History: Never smoked Have you smoked in the past 12 months: No Hx Alcohol Use: Yes ("social") Drug/Substance Use Hx: No Substance Use Type: None Review of Systems - Review of Systems Comments:: GENERAL/CONSTITUTIONAL: No fever or chills. No weakness._ HEAD, EYES, EARS, NOSE AND THROAT: No change in vision. No change in hearing. No sore throat. Reports right face pain. CARDIOVASCULAR: No chest pain or shortness of breath_ RESPIRATORY: Denies cough, hemoptysis_ GASTROINTESTINAL: No nausea, vomiting, diarrhea or constipation._ GENITOURINARY: No dysuria, frequency, or change in urination._ MUSCULOSKELETAL: No joint or muscle swelling or pain. No neck or back pain._ SKIN: No rash_ NEUROLOGIC: Reports headache. No vertigo, loss of consciousness, or change in strength/sensation._ ENDOCRINE: No increased thirst. No abnormal weight change_ HEMATOLOGIC/LYMPHATIC: No anemia, easy bleeding, or history of blood clots._ ALLERGIC/IMMUNOLOGIC: No hives or skin allergy._ *Physical Exam - Vital Signs Last Vital Signs Temp Pulse Resp BP Pulse Ox 98.1 F 89 20 161/85 99 05/14/19 13:34 05/14/19 13:34 05/14/19 13:34 05/14/19 13:34 05/14/19 13:34 - Physical Exam Comments: GENERAL: Awake, alert, and oriented to person/place/time, in no acute distress_ HEAD: Minimal bruising over right cheek. TTP right maxilla. EYES: PERRLA, EOMI, sclera anicteric, conjunctiva clear. Mild bruising below right eye. ENT: Hearing grossly normal, blood in bilateral nares, no septal hematoma, oropharynx clear without exudates. No uvular deviation. Moist mucosa. Loss of dental bridge and upper teeth missing. NECK: Normal ROM, supple, no lymphadenopathy, JVD, or masses. Mild TTP midline C -spine. LUNGS: No distress, speaks in full sentences, clear to auscultation bilaterally _ HEART: Regular rate and rhythm, normal S1 and S2, no murmurs appreciated, peripheral pulses normal and equal bilaterally._ ABDOMEN: Soft, nontender, normoactive bowel sounds. No guarding, no rebound. No masses_ EXTREMITIES: Normal inspection, Normal range of motion, no edema. No clubbing or cyanosis_ NEUROLOGICAL: Cranial nerves II through XII grossly intact. Normal speech, normal gait, no focal sensorimotor deficits _ SKIN: Warm, Dry, normal turgor, no rashes or lesions noted_ ED Treatment Course - RADIOLOGY Radiology Studies Ordered: Category Date Time Status CERVICAL SPINE CT W/O CONTR [CT] Stat CT Scan 05/14/19 14:[address] W/O CONTRAST [CT] Stat CT Scan 05/14/19 14:[address] WITHOUT CONTRAST [CT] Stat CT Scan 05/14/19 14:12 Ordered Medical Decision Making - Medical Decision Making 69F hx of HLD, anxiety, presenting s/p mechanical fall. -CT head, CT c-spine, CT facial bones -Tylenol PO for pain control 05/14/19 16:45 Pt reassessed. Reports feeling better after Tylenol. CT head shows no acute intracranial pathology or hemorrhage. CT c-spine shows no acute fx. CT facial bones shows no acute fx. Plan to d/c home with Tylenol/ Motrin for pain relief, f/u PCP and dentistry. Patient verbalized understanding and agreement with plan. Discharge - Discharge Information Problems reviewed: Yes Clinical Impression/Diagnosis: Fall Qualifiers: Encounter type: initial encounter Qualified Code(s): W19.XXXA - Unspecified fall, initial encounter Condition: Stable Disposition: HOME - Admission No - Follow up/Referral Referrals: Patria Oneil MD [Primary Care Provider] - - Patient Discharge Instructions Patient Printed Discharge Instructions: How to Prevent Falls Additional Instructions: Please take Tylenol or Motrin as needed for pain relief (follow instructions on the package). Please ice the swollen area around your nose. Please make a follow up appointment with your primary care doctor and with your dentist. If you experience any new, worsening, or concerning symptoms, including changes or loss of vision, difficulty breathing, lethargy, frequent falls, or any other concerns, please return to the emergency department. - Post Discharge Activity
[2019-05-14] MEDS ORDERED: ACETAMINOPHEN 325 MG TABLET (FP) ONE (14:31)
--- NOTE | 2019-05-14 14:48 | PDOC ---
Documentation entered by Parish Khoury SCRIBE, acting as scribe for Indra Sanchez MD. Indra Sanchez MD: This documentation has been prepared by the Iraida hope Nirvannie, SCRIBE, under my direction and personally reviewed by me in its entirety. I confirm that the documentation accurately reflects all work, treatment, procedures, and medical decision making performed by me. Attending Attestation - Resident Resident Name: Iván Nicolas - ED Attending Attestation I have performed the following: I have examined & evaluated the patient, The case was reviewed & discussed with the resident, I agree w/resident's findings & plan, Exceptions are as noted - HPI HPI: 05/14/19 14:57 The patient is a 69 year old female, with a significant past medical history of HL, multiple falls, c-spine surgery 10yrs ago who presents to the emergency department s/p fall with pain to the nose and mouth. As per patient, she was ambulating with the assistance of her walker at which time the well head pumper on her foot got caught on the tile ground causing her to subsequently fall onto her face. She notes immediate bleeding to the nose with associated pain. She also notes losing her only naive R upper tooth and top anterior bridge. Patients daughter at bedside, notes the patient falls frequently and has broken her nose several times but, patient refuses to walk with the assistance of a walker. Pt has had a w/u with a neurologist that was reportedly normal. Pt is not on AC or aspirin. She denies any LOC, lightheadedness, dizziness, new pain to the back/extremities , chest pain, shortness of breath, palpitations, abd pain, N/V/D, blurry vision. Allergies: NKA Past surgical history: Temporary kidney stent (s/p 7 years ago); C-spine surgery with titanium (>10 years ago); cholecystectomy. Primary Care Physician: Dr. Oneil - Physicial Exam PE: 05/14/19 15:20 GENERAL: Awake, alert, and fully oriented, in no acute distress. Very pleasant. HEAD: Significant edema to nasal bridge with L maxillary ttp. Dried blood at both nares. EYES: PERRLA, EOMI, sclera anicteric, conjunctiva clear ENT: Auricles normal inspection, hearing grossly normal, nares patent w/o septal hematoma, Adenulous from tooth 1-11. No malocclusion or trismus. Moist mucosa NECK: Normal ROM, supple, no lymphadenopathy, JVD, or masses BACK: +diffuse cervical midline ttp, no midline thoracic or lumbar ttp LUNGS: Breath sounds equal, clear to auscultation bilaterally. No wheezes, and no crackles HEART: Regular rate and rhythm, normal S1 and S2, no murmurs, rubs or gallops ABDOMEN: Soft, nontender, normoactive bowel sounds. No guarding, no rebound. No masses EXTREMITIES: Normal range of motion, no edema. No cords, erythema, or tenderness NEUROLOGICAL: Normal speech, cranial nerves intact, 5/5 strength in all 4 extremities, normal sensation to light touch in all 4 extremities, normal cerebellar exam, normal gait with cane SKIN: Warm, Dry, normal turgor, no rashes or lesions noted. - Medical Decision Making 05/14/19 14:44 69-year-old female with history of hyperlipidemia, gait instability presents the emergency department after a fall. Fall is mechanical in nature, after her shoe caught on the ground and she fell forward. Patient is reporting pain to her nose and mouth. Blood pressure elevated on arrival, however on my evaluation is down to 134/80. Vitals otherwise within normal limits. Exam with significant nasal bridge edema and left maxillary sinus tenderness palpation. Patient is also edentulous from tooth 1 through tooth 11. She reports she had a bridge in place due to another recent fall and also had one atka tooth that fell out today due to the fall. She has no malocclusion or trismus. Patient also with diffuse cervical spine tenderness, however reports this is chronic since surgery 10 years ago. Plan at this time for CT head, CT facial bones, and CT cervical spine. No need for labs at this time as patient is not anticoagulated and did not have a syncopal episode. She requests only Tylenol for pain. Will reassess Trauma imaging neg for acute fractures Pt ambulating with her cane at baseline in ED She is eager for DC home She will f/u with her dentist and PMD She is clinically stable for DC home I discussed the physical exam findings, ancillary test results and final diagnoses with the patient. I answered all of the patient's questions. The patient was satisfied with the care received and felt comfortable with the discharge plan and treatment plan. The patient will call their primary care physician within 24 hours to arrange follow-up and will return to the Emergency Department with any new, persistent or worsening symptoms.
[2019-05-14 18:47] VITALS: BP 142/81; PULSE 86
== END 2019-05-14 17:00 | disposition home or self-care (01) ==
LOC: JER 13:14
DX: S09.93XA Unspecified injury of face, initial encounter (principal); K08.109 Complete loss of teeth, unspecified cause, unspecified class; W01.0XXA Fall on same level from slipping, tripping and stumbling without subsequent striking against object, initial encounter; Y93.89 Activity, other specified; Y92.89 Other specified places as the place of occurrence of the external cause; Y99.8 Other external cause status; R29.6 Repeated falls; E78.00 Pure hypercholesterolemia, unspecified; K21.9 Gastro-esophageal reflux disease without esophagitis; J45.909 Unspecified asthma, uncomplicated; F32.9 Major depressive disorder, single episode, unspecified; F41.9 Anxiety disorder, unspecified; Z99.89 Dependence on other enabling machines and devices; Z88.5 Allergy status to narcotic agent
CPT/HCPCS: 70450-TC; 70486-TC; 72125-TC; 99282-25

== ENCOUNTER 2020-12-17 10:52 | Emergency (ER) | payer OTHER ==
[2020-12-17 11:03] VITALS: TEMP 98.2; BMI 29.6
[2020-12-17] MEDS ORDERED: MAG HYDROX/AL HYDROX/SIMETH 30 ML UNIT-DOSE CUP PO ONE (11:34)
[2020-12-17] MEDS ORDERED: FAMOTIDINE 20 MG/50 ML IVPB 20 MG/50 ML MG IVPB ONE ×2 (11:34→12:09)
[2020-12-17] MEDS ORDERED: SUCRALFATE 1 GM TABLET (FP) PO ONE (11:34)
[2020-12-17] MEDS ORDERED: SUCRALFATE 1 GM TABLET (FP) ONE (12:09)
[2020-12-17] MEDS ORDERED: MAG HYDROX/AL HYDROX/SIMETH 30 ML UNIT-DOSE CUP ONE (12:09)
[2020-12-17 12:21] LABS: BASO % 0.3 % (0-2.0); EOS % 1.7 % (0-4.5); HEMATOCRIT 37.3 % (32.4-45.2); HEMOGLOBIN 12.6 GM/dL (10.7-15.3); LYMPH % 21.3 % (8-40); MCH 28.3 pg (25.7-33.7); MCHC 33.8 g/dl (32.0-36.0); MEAN CELL VOLUME 83.7 fl (80-96); MEAN PLT VOLUME 8.1 fl (7.5-11.1); MONO % 7.5 % (3.8-10.2); NEUT % 69.2 % (42.8-82.8); PLATELET COUNT 249 10^3/uL (134-434); RBC 4.45 M/mm3 (3.60-5.2); RDW 14.1 % (11.6-15.6); WHITE BLOOD COUNT 6.2 K/mm3 (4.0-10.0)
[2020-12-17 12:50] LABS: CHLORIDE 108 mmol/L (98-107); SODIUM 141 mmol/L (136-145)
[2020-12-17 12:52] LABS: CALCIUM 8.8 mg/dL (8.5-10.1)
[2020-12-17 12:53] LABS: ALBUMIN 3.8 g/dl (3.4-5.0); ANION GAP 5 MMOL/L (8-16); CO2 27 mmol/L (21-32); GLUCOSE,RANDOM 95 mg/dL (74-106)
[2020-12-17 12:56] LABS: CREATININE 0.4 mg/dL (0.55-1.3); SGOT/AST 22 U/L (15-37); SGPT/ALT 24 U/L (13-61)
[2020-12-17 12:57] LABS: BILIRUBIN,TOTAL 0.5 mg/dL (0.2-1); TOT PROT 7.2 g/dl (6.4-8.2)
[2020-12-17 12:59] LABS: ALK PHOS 86 U/L (45-117)
[2020-12-17 15:54] VITALS: BP 148/73; PULSE 82
== END 2020-12-17 15:35 | disposition home or self-care (01) ==
LOC: JER 10:52
PROC: 3E033GC Introduction of Other Therapeutic Substance into Peripheral Vein, Percutaneous Approach (ICD-10-PCS; principal; 2020-12-17)
DX: R07.9 Chest pain, unspecified (principal)
CPT/HCPCS: 36415; 71045-TC-FY; 80053; 82550; 84484; 85025; 93005; 93010; 99285-25

== ENCOUNTER 2021-01-21 04:38 | Day surgery (SDC) | payer OTHER ==
[2021-01-16 15:55] VITALS: BMI 29.7
[2021-01-21] MEDS ORDERED: PROPOFOL 20 ML ONE (09:55)
[2021-01-21] MEDS ORDERED: MIDAZOLAM HCL 2 MG/2 ML SINGLE DOSE VIAL ONE (10:26)
[2021-01-21] MEDS ORDERED: ceFAZolin SODIUM 1 GM VIAL ONE (11:14)
[2021-01-21] MEDS ORDERED: ACETAMINOPHEN INJECTION 100 ML IVPB ONE (11:15)
[2021-01-21] MEDS ORDERED: SUCCINYLCHOLINE CHLORIDE 200 MG/10 ML SYRINGE ONE (11:20)
[2021-01-21] MEDS ORDERED: LIDOCAINE HCL/PF 2% SDV 5ML VIAL ONE (11:22)
[2021-01-21] MEDS ORDERED: ONDANSETRON 4 MG/2 ML VIAL IVPUSH PRN (12:13)
[2021-01-21] MEDS ORDERED: PROMETHAZINE HCL 25 MG/1 ML VIAL IVPUSH PRN (12:13)
[2021-01-21] MEDS ORDERED: ACETAMINOPHEN 325 MG TABLET (FP) PO PRN (12:30)
[2021-01-21] MEDS ORDERED: oxyCODONE HCL 5 MG TABLET PO PRN (12:30)
[2021-01-21] MEDS ORDERED: BENZOCAINE/MENTH/CETYLPYRD CL 1 EACH LOZENGE MM PRN (13:13)
[2021-01-21 17:05] VITALS: BP 110/70; PULSE 76; TEMP 97.2
== END 2021-01-21 15:45 | disposition home or self-care (01) ==
LOC: JASU-SURG 04:38
PROVIDERS: ATTEND Urology
PROC: 0TSD0ZZ Reposition Urethra, Open Approach (ICD-10-PCS; 2021-01-21)
PROC: 0JQC0ZZ Repair Pelvic Region Subcutaneous Tissue and Fascia, Open Approach (ICD-10-PCS; principal; 2021-01-21 10:00)
DX: N39.3 Stress incontinence (female) (male) (principal); N81.10 Cystocele, unspecified
CPT/HCPCS: 57240; 57288; C1771; 94760; J0131

== ENCOUNTER 2021-06-23 15:19 | Emergency (ER) | payer OTHER ==
[2021-06-23 15:27] VITALS: BP 157/83; PULSE 106; TEMP 98.1; BMI 16.1
[2021-06-24 14:12] LABS: SARS-CoV-2 NAA Not Detected (Not Detected)
== END 2021-06-23 16:26 | disposition home or self-care (01) ==
LOC: JER 15:19
DX: Z20.822 Contact with and (suspected) exposure to COVID-19 (principal)
CPT/HCPCS: 87804; 99283-25; C9803; U0003; U0005

== ENCOUNTER 2021-08-22 04:47 | Day surgery (SDC) | payer OTHER ==
[2021-08-21 09:44] VITALS: BMI 29.7
[2021-08-22] MEDS ORDERED: VASOPRESSIN 20 UNITS/ML VIAL IV ONE (08:52)
[2021-08-22] MEDS ORDERED: ceFAZolin SODIUM 1 GM VIAL IVPB ONE (10:25)
[2021-08-22] MEDS ORDERED: DESFLURANE GAS 240 ML BOTTLE IH ONE (10:47)
[2021-08-22] MEDS ORDERED: LIDOCAINE HCL/PF 2% SDV 5ML VIAL ONE (11:02)
[2021-08-22] MEDS ORDERED: ONDANSETRON 4 MG/2 ML VIAL IVPUSH PRN (11:53)
[2021-08-22 13:12] LABS: BASO % 0.2 % (0-2.0); EOS % 1.7 % (0-4.5); HEMATOCRIT 34.2 % (32.4-45.2); HEMOGLOBIN 11.7 GM/dL (10.7-15.3); LYMPH % 17.6 % (8-40); MCH 28.7 pg (25.7-33.7); MCHC 34.1 g/dl (32.0-36.0); MEAN CELL VOLUME 84.2 fl (80-96); MONO % 4.4 % (3.8-10.2); NEUT % 76.1 % (42.8-82.8); PLATELET COUNT 206 10^3/uL (134-434); RBC 4.06 M/mm3 (3.60-5.2); RDW 14.2 % (11.6-15.6); WHITE BLOOD COUNT 7.5 K/mm3 (4.0-10.0)
[2021-08-22 15:51] VITALS: BP 117/54; PULSE 84; TEMP 97.8
== END 2021-08-22 16:00 | disposition home or self-care (01) ==
LOC: JASU-SURG 04:47
PROVIDERS: ATTEND Urology
PROC: 0JQC0ZZ Repair Pelvic Region Subcutaneous Tissue and Fascia, Open Approach (ICD-10-PCS; 2021-08-22)
PROC: 0TJB8ZZ Inspection of Bladder, Via Natural or Artificial Opening Endoscopic (ICD-10-PCS; 2021-08-22)
PROC: 0TSD0ZZ Reposition Urethra, Open Approach (ICD-10-PCS; principal; 2021-08-22 10:00)
DX: N39.3 Stress incontinence (female) (male) (principal); N81.11 Cystocele, midline
CPT/HCPCS: 57240; 57288; C1763; 36415; 85025; 94760

== ENCOUNTER 2022-05-26 05:55 | Day surgery (SDC) | payer OTHER ==
[2022-05-26] MEDS ORDERED: CELECOXIB 200 MG CAPSULE PO ONE (06:42)
[2022-05-26] MEDS ORDERED: ceFAZolin SODIUM 1 GM VIAL ONE ×2 (07:03)
[2022-05-26] MEDS ORDERED: KETOROLAC TROMETHAMINE 30 MG/1 ML VIAL ONE (07:03)
[2022-05-26] MEDS ORDERED: MIDAZOLAM HCL 2 MG/2 ML SINGLE DOSE VIAL ONE (07:03)
[2022-05-26] MEDS ORDERED: DEXAMETHASONE SOD PHOSPHATE 4 MG/1 ML VIAL ONE (07:03)
[2022-05-26] MEDS ORDERED: VANCOMYCIN 1,000 MG VIAL (RESTRICTED TO ID ONLY) ONE (07:03)
[2022-05-26] MEDS ORDERED: ONDANSETRON 4 MG/2 ML VIAL ONE (07:03)
[2022-05-26] MEDS ORDERED: PROPOFOL 60 ML ONE (07:03)
[2022-05-26] MEDS ORDERED: ACETAMINOPHEN INJECTION 100 ML IVPB ONE (07:14)
[2022-05-26] MEDS ORDERED: BUPIVACAINE HCL/PF 0.5% (5MG/ML) 10 ML VIAL ONE (07:14)
[2022-05-26] MEDS ORDERED: DEXAMETHASONE SOD PHOSPHATE 10 MG/1 ML VIAL ONE (07:15)
[2022-05-26 07:16] VITALS: BMI 28.8
[2022-05-26] MEDS ORDERED: PATIENT'S OWN MEDICATION (NON-FORMULARY) (Cetirizine Hcl [Zyrtec] 10 MG Tablet) PO PRN (07:57)
[2022-05-26] MEDS ORDERED: MAG HYDROX/AL HYDROX/SIMETH 30 ML UNIT-DOSE CUP PO PRN (07:58)
[2022-05-26] MEDS ORDERED: CEFAZOLIN 2 GM in DEXTROSE 5%-WATER - 50 ML IVPB ONE (08:00)
[2022-05-26] MEDS ORDERED: LACTATED RINGERS SOLUTION 1,000 ML IV SCH (08:00)
[2022-05-26] MEDS ORDERED: TRANEXAMIC ACID 1000 MG/10 ML VIAL IVPUSH ONE (08:00)
[2022-05-26] MEDS ORDERED: FAMOTIDINE 20 MG TABLET PO SCH (08:00)
[2022-05-26] MEDS ORDERED: LORATADINE 10 MG TABLET PO PRN (09:22)
[2022-05-26] MEDS ORDERED: ACETAMINOPHEN 325 MG TABLET (FP) PO PRN (10:45)
[2022-05-26] MEDS ORDERED: ONDANSETRON 4 MG/2 ML VIAL IVPUSH PRN (11:42)
[2022-05-26] MEDS: CEFAZOLIN SODIUM 2 GM in DEXTROSE 5%-WATER 100 ML IVPB SCH (15:38)
[2022-05-26] MEDS: traMADol HCL 50 MG TABLET PO PRN ×2 (16:35→21:26)
[2022-05-26 18:43] VITALS: RESP 18
[2022-05-26] MEDS: ESCITALOPRAM OXALATE 10 MG TABLET PO SCH (19:33)
[2022-05-26] MEDS: PANTOPRAZOLE 40 MG TABLET PO SCH (19:33)
[2022-05-26] MEDS: MULTIVITAMINS (DAILY MVI) TABLET (FP) PO SCH (19:34)
[2022-05-26] MEDS: SENNOSIDES/DOCUSATE COMBO (SENNA PLUS) TABLET (UD) PO SCH (21:25)
[2022-05-26] MEDS ORDERED: ROSUVASTATIN CA 10 MG TABLET PO SCH (22:00)
[2022-05-27] MEDS: CEFAZOLIN SODIUM 2 GM in DEXTROSE 5%-WATER 100 ML IVPB SCH (00:02)
[2022-05-27] MEDS: traMADol HCL 50 MG TABLET PO PRN (05:29)
[2022-05-27 07:57] LABS: HEMATOCRIT 32.7 % (32.4-45.2); MCH 28.2 pg (25.7-33.7); MCHC 33.7 g/dl (32.0-36.0); MEAN CELL VOLUME 83.9 fl (80-96); MEAN PLT VOLUME 8.7 fl (7.5-11.1); PLATELET COUNT 224.7 10^3/uL (134-434); RDW 14.6 % (11.6-15.6); WHITE BLOOD COUNT 13.1 10^3/uL (4.0-10.8)
[2022-05-27] MEDS ORDERED: ASPIRIN 325 MG TABLET PO SCH (08:00)
[2022-05-27] MEDS: SENNOSIDES/DOCUSATE COMBO (SENNA PLUS) TABLET (UD) PO SCH (09:11)
[2022-05-27] MEDS: ESCITALOPRAM OXALATE 10 MG TABLET PO SCH (09:11)
[2022-05-27] MEDS: PANTOPRAZOLE 40 MG TABLET PO SCH (09:12)
[2022-05-27] MEDS: MULTIVITAMINS (DAILY MVI) TABLET (FP) PO SCH (09:12)
[2022-05-27 14:21] VITALS: BP 103/77; PULSE 81; TEMP 97.9
== END 2022-05-27 18:34 | disposition home health service (06) ==
LOC: FASUSAT 05:55 → FM/S 11:53 → FASUSAT 05-27 18:34
PROVIDERS: ATTEND Orthopaedic Surgery
PROC: 8E0Y0CZ Robotic Assisted Procedure of Lower Extremity, Open Approach (ICD-10-PCS; 2022-05-26)
PROC: 0SRB0JA Replacement of Left Hip Joint with Synthetic Substitute, Uncemented, Open Approach (ICD-10-PCS; principal; 2022-05-26 08:33)
DX: M16.12 Unilateral primary osteoarthritis, left hip (principal)
CPT/HCPCS: 20985; 27130; C1776; S2900; 36415; 73502-TC-LT-FY; 85027; 88305-TC; 88311-TC; 94760; 97010-GP; 97116-GP; 97162-GP; J1100

== ENCOUNTER 2022-10-22 09:31 | Inpatient (IN) | payer OTHER ==
[2022-10-22 09:41] VITALS: BMI 28.7
[2022-10-22 10:36] LABS: BASO % 0.8 % (0-2.0); HEMATOCRIT 32.8 % (32.4-45.2); HEMOGLOBIN 11.4 GM/dL (10.7-15.3); MCH 27.4 pg (25.7-33.7); MCHC 34.8 g/dl (32.0-36.0); MEAN CELL VOLUME 78.6 fl (80-96); MEAN PLT VOLUME 7.8 fl (7.5-11.1); NEUT % 64.2 % (42.8-82.8); PLATELET COUNT 336 10^3/uL (134-434); RBC 4.17 M/mm3 (3.60-5.2); RDW 14.5 % (11.6-15.6); WHITE BLOOD COUNT 9.9 K/mm3 (4.0-10.0)
[2022-10-22 10:47] LABS: INR 1.17 (0.83-1.09); PROTHROMBIN TIME (PATIENT) 13.5 SEC (9.7-13.0)
[2022-10-22 10:49] LABS: ACTIVATED PTT 29.9 SECONDS (25.2-36.5)
[2022-10-22] MEDS: CEFEPIME 1 GM in DEXTROSE 5%-WATER 100 ML IVPB SCH (11:00)
[2022-10-22 11:03] LABS: POTASSIUM 4.4 mmol/L (3.5-5.1)
[2022-10-22 11:05] LABS: ALBUMIN 3.5 g/dl (3.4-5.0); CALCIUM 9.1 mg/dL (8.5-10.1)
[2022-10-22 11:06] LABS: BLOOD UREA NITROGEN 10.7 mg/dL (7-18)
[2022-10-22 11:09] LABS: CREATININE 0.4 mg/dL (0.55-1.3)
[2022-10-22 11:10] LABS: BILIRUBIN,TOTAL 0.5 mg/dL (0.2-1); TOT PROT 7.5 g/dl (6.4-8.2)
[2022-10-22 11:31] LABS: ERYTHROCYTE SEDIMENTATION RATE 12 mm/hr (0-30)
[2022-10-22 11:53] LABS: EPI CELLS 33 /uL (0-25.1); HYALINE CASTS 4 /uL (0-3.1); PH,URINE 5.5 (5.0-8.0); URINE APPEARANCE CLOUDY; URINE BACTERIA 320 /uL (0-1359); URINE BILIRUBIN NEGATIVE (NEGATIVE); URINE COLOR DK YELLOW; URINE GLUCOSE (UA) NEGATIVE (NEGATIVE); URINE KETONE TRACE (NEGATIVE); URINE LEUK ESTERASE 2+ (NEGATIVE); URINE NITRITE NEGATIVE (NEGATIVE); URINE PROTEIN 1+ (NEGATIVE); URINE RBC 41 /uL (0-23.9); URINE UROBILINOGEN 0.2 mg/dL (0.2-1.0); URINE WBC 273 /uL (0-25.8)
[2022-10-22] MEDS ORDERED: ceFAZolin SODIUM 1 GM VIAL IVPB ONE (16:00)
[2022-10-22] MEDS ORDERED: ONDANSETRON 4 MG/2 ML VIAL IVPUSH PRN (16:16)
[2022-10-22] MEDS ORDERED: LACTATED RINGERS SOLUTION 1,000 ML IV SCH (16:30)
[2022-10-22] MEDS ORDERED: ACETAMINOPHEN 1000 MG/100 ML BAG IVPB ONE ×2 (16:41→16:48)
[2022-10-22] MEDS ORDERED: ACETAMINOPHEN INJECTION 100 ML IVPB ONE (16:43)
[2022-10-22] MEDS ORDERED: CEFEPIME 1 GM in DEXTROSE 5%-WATER 100 ML IVPB SCH (18:30)
[2022-10-22] MEDS: D5-1/2NS+20 MEQ KCL - 20 MEQ/1,000 ML INFUS.BAG IV SCH (18:30)
[2022-10-22] MEDS: VANCOMYCIN/WATER FOR INJ (PEG) 1,000 MG/200 ML BAG IVPB SCH (18:52)
[2022-10-22] MEDS ORDERED: CEFEPIME HCL 1 GM VIAL (RESTRICTED TO ID) ONE (22:44)
[2022-10-22] MEDS: ROSUVASTATIN CA 10 MG TABLET PO SCH (23:23)
[2022-10-22] MEDS: SENNOSIDES/DOCUSATE COMBO (SENNA PLUS) TABLET (UD) PO SCH (23:25)
[2022-10-23] MEDS: VANCOMYCIN/WATER FOR INJ (PEG) 1,000 MG/200 ML BAG IVPB SCH ×2 (05:47→17:18)
[2022-10-23] MEDS: CEFEPIME 1 GM in DEXTROSE 5%-WATER 100 ML IVPB SCH ×3 (05:47→21:51)
[2022-10-23 08:13] LABS: BLOOD UREA NITROGEN 7.2 mg/dL (7-18); CALCIUM 8.9 mg/dL (8.5-10.1)
[2022-10-23 08:15] LABS: BASO % 0.2 % (0-2.0); EOS % 0.2 % (0-4.5); HEMATOCRIT 30.1 % (32.4-45.2); HEMOGLOBIN 10.3 GM/dL (10.7-15.3); LYMPH % 10.3 % (8-40); MCH 27.3 pg (25.7-33.7); MCHC 34.2 g/dl (32.0-36.0); MEAN CELL VOLUME 79.9 fl (80-96); MONO % 4.9 % (3.8-10.2); NEUT % 84.4 % (42.8-82.8); PLATELET COUNT 309 10^3/uL (134-434); RBC 3.77 M/mm3 (3.60-5.2); RDW 14.8 % (11.6-15.6); WHITE BLOOD COUNT 9.7 K/mm3 (4.0-10.0)
[2022-10-23 08:17] LABS: CREATININE 0.5 mg/dL (0.55-1.3)
[2022-10-23 08:18] LABS: BILIRUBIN,TOTAL 0.5 mg/dL (0.2-1); TOT PROT 6.5 g/dl (6.4-8.2)
[2022-10-23 08:26] LABS: ALBUMIN 2.8 g/dl (3.4-5.0)
[2022-10-23] MEDS: D5-1/2NS+20 MEQ KCL - 20 MEQ/1,000 ML INFUS.BAG IV SCH (08:42)
[2022-10-23] MEDS: MULTIVITAMINS (DAILY MVI) TABLET (FP) PO SCH (09:27)
[2022-10-23] MEDS: ESCITALOPRAM OXALATE 10 MG TABLET PO SCH (09:27)
[2022-10-23] MEDS: PANTOPRAZOLE 40 MG TABLET PO SCH (09:27)
[2022-10-23] MEDS: SENNOSIDES/DOCUSATE COMBO (SENNA PLUS) TABLET (UD) PO SCH ×2 (09:27→22:04)
[2022-10-23] MEDS: LORATADINE 10 MG TABLET PO SCH (11:44)
[2022-10-23] MEDS ORDERED: CEFEPIME HCL 1 GM VIAL (RESTRICTED TO ID) ONE (13:06)
[2022-10-23] MEDS: ROSUVASTATIN CA 10 MG TABLET PO SCH (21:52)
[2022-10-24] MEDS: CEFEPIME 1 GM in DEXTROSE 5%-WATER 100 ML IVPB SCH ×3 (05:30→21:33)
[2022-10-24] MEDS: VANCOMYCIN/WATER FOR INJ (PEG) 1,000 MG/200 ML BAG IVPB SCH ×2 (06:44→20:00)
[2022-10-24 08:25] LABS: BASO % 0.7 % (0-2.0); EOS % 13.4 % (0-4.5); HEMATOCRIT 28.2 % (32.4-45.2); LYMPH % 18.6 % (8-40); MCH 28.2 pg (25.7-33.7); MCHC 35.6 g/dl (32.0-36.0); MEAN PLT VOLUME 8.2 fl (7.5-11.1); MONO % 7.3 % (3.8-10.2); PLATELET COUNT 314 10^3/uL (134-434); RBC 3.57 M/mm3 (3.60-5.2); RDW 14.7 % (11.6-15.6); WHITE BLOOD COUNT 9.7 K/mm3 (4.0-10.0)
[2022-10-24 08:39] LABS: POTASSIUM 4.5 mmol/L (3.5-5.1)
[2022-10-24 08:42] LABS: BLOOD UREA NITROGEN 5.6 mg/dL (7-18); CALCIUM 8.7 mg/dL (8.5-10.1)
[2022-10-24 08:43] LABS: ALBUMIN 2.8 g/dl (3.4-5.0)
[2022-10-24 08:46] LABS: CREATININE 0.4 mg/dL (0.55-1.3)
[2022-10-24 08:47] LABS: BILIRUBIN,TOTAL 0.4 mg/dL (0.2-1); TOT PROT 6.4 g/dl (6.4-8.2)
[2022-10-24] MEDS: FLUTICASONE PROP 0.05% 16 GM NASAL SPRAY NS SCH (10:10)
[2022-10-24] MEDS: PANTOPRAZOLE 40 MG TABLET PO SCH (10:10)
[2022-10-24] MEDS: MULTIVITAMINS (DAILY MVI) TABLET (FP) PO SCH (10:10)
[2022-10-24] MEDS: ESCITALOPRAM OXALATE 10 MG TABLET PO SCH (10:10)
[2022-10-24] MEDS: SENNOSIDES/DOCUSATE COMBO (SENNA PLUS) TABLET (UD) PO SCH ×2 (10:10→21:34)
[2022-10-24] MEDS: LORATADINE 10 MG TABLET PO SCH (10:10)
[2022-10-24] MEDS: ROSUVASTATIN CA 10 MG TABLET PO SCH (21:34)
[2022-10-25] MEDS: VANCOMYCIN/WATER FOR INJ (PEG) 1,000 MG/200 ML BAG IVPB SCH ×2 (05:30→18:05)
[2022-10-25] MEDS: CEFEPIME 1 GM in DEXTROSE 5%-WATER 100 ML IVPB SCH ×3 (06:43→21:00)
[2022-10-25 08:43] VITALS: RESP 18
[2022-10-25] MEDS: SENNOSIDES/DOCUSATE COMBO (SENNA PLUS) TABLET (UD) PO SCH ×3 (09:37→21:00)
[2022-10-25] MEDS: MULTIVITAMINS (DAILY MVI) TABLET (FP) PO SCH (09:37)
[2022-10-25] MEDS: LORATADINE 10 MG TABLET PO SCH (09:37)
[2022-10-25] MEDS: FLUTICASONE PROP 0.05% 16 GM NASAL SPRAY NS SCH (09:37)
[2022-10-25] MEDS: ESCITALOPRAM OXALATE 10 MG TABLET PO SCH (09:37)
[2022-10-25] MEDS: PANTOPRAZOLE 40 MG TABLET PO SCH (09:37)
[2022-10-25] MEDS: ROSUVASTATIN CA 10 MG TABLET PO SCH (21:00)
[2022-10-26] MEDS: CEFEPIME 1 GM in DEXTROSE 5%-WATER 100 ML IVPB SCH (05:01)
[2022-10-26] MEDS: VANCOMYCIN/WATER FOR INJ (PEG) 1,000 MG/200 ML BAG IVPB SCH (06:14)
[2022-10-26] MEDS ORDERED: IRON SUCROSE INJECTION 200 MG in SODIUM CHLORIDE 90 ML IVPB ONE (09:00)
[2022-10-26 09:06] VITALS: TEMP 97.7
[2022-10-26] MEDS: LORATADINE 10 MG TABLET PO SCH (09:10)
[2022-10-26] MEDS: PANTOPRAZOLE 40 MG TABLET PO SCH (09:10)
[2022-10-26] MEDS: MULTIVITAMINS (DAILY MVI) TABLET (FP) PO SCH (09:10)
[2022-10-26] MEDS: ESCITALOPRAM OXALATE 10 MG TABLET PO SCH (09:10)
[2022-10-26] MEDS: FLUTICASONE PROP 0.05% 16 GM NASAL SPRAY NS SCH (09:11)
[2022-10-26] MEDS: SENNOSIDES/DOCUSATE COMBO (SENNA PLUS) TABLET (UD) PO SCH (09:16)
[2022-10-26] MEDS ORDERED: CEFTRIAXONE 2 GM in DEXTROSE 5%-WATER 100 ML IVPB SCH (12:45)
[2022-10-26 15:22] VITALS: BP 139/67; PULSE 110
== END 2022-10-26 16:54 | DRG 468 ==
LOC: JER 09:31 → JERBED 10:36 → J6S 18:47
PROVIDERS: ADMIT Family Medicine; ATTEND Family Medicine
PROC: 0SRB0JA Replacement of Left Hip Joint with Synthetic Substitute, Uncemented, Open Approach (ICD-10-PCS; 2022-10-22)
PROC: 0SBB0ZZ Excision of Left Hip Joint, Open Approach (ICD-10-PCS; 2022-10-22)
PROC: 3E1U38Z Irrigation of Joints using Irrigating Substance, Percutaneous Approach (ICD-10-PCS; 2022-10-22)
PROC: 0S9B0ZZ Drainage of Left Hip Joint, Open Approach (ICD-10-PCS; principal; 2022-10-22 14:15)
PROC: 0SPB0JZ Removal of Synthetic Substitute from Left Hip Joint, Open Approach (ICD-10-PCS; 2022-10-22 14:15)
PROC: 02HV33Z Insertion of Infusion Device into Superior Vena Cava, Percutaneous Approach (ICD-10-PCS; 2022-10-26)
PROC: B548ZZA Ultrasonography of Superior Vena Cava, Guidance (ICD-10-PCS; 2022-10-26)
DX: T84.52XA Infection and inflammatory reaction due to internal left hip prosthesis, initial encounter (principal); Y83.9 Surgical procedure, unspecified as the cause of abnormal reaction of the patient, or of later complication, without mention of misadventure at the time of the procedure; E78.5 Hyperlipidemia, unspecified; L08.9 Local infection of the skin and subcutaneous tissue, unspecified; K21.9 Gastro-esophageal reflux disease without esophagitis; D64.9 Anemia, unspecified
CPT/HCPCS: 0241U-QW; 36415; 36569; 71045-TC-FY; 73502-TC-LT-FY; 77001-TC-FY; 80048; 80053; 81003; 82728; 83036; 83540; 83550; 83605; 85025; 85610; 85651; 85730; 86140; 86850; 86900; 86901; 87040; 87070; 87086; 87186; 87205; 88300-TC; 88304-TC; 93005; 93010; 94760; 97116-GP; 97162-GP; 99285-25; C1751; C1776; C9803-CS; G0480; J1756; U0003; U0005